=== PATIENT | male | born 1965 | race Caucasian/White ===

== ENCOUNTER 2017-04-22 10:14 | Emergency (ER) | payer MEDICAID ==
--- NOTE | 2017-04-22 10:54 | ED Physician Chart ---
ED Chief Complaint/HPI - Patient Information Date Seen:: 04/22/17 Time Seen:: 10:49 Chief Complaint:: BLE weakness History of Present Illness:: 51 yo male had weakness of BLE and difficulty walking for 1 year progressively worsened with tremor during past months. The legs had difficulty bearing weight. He denied numbness or tingling of BLE. Allergies:: Allergies Allergy/AdvReac Type Severity Reaction Status Date / Time No Known Allergies Allergy Verified 04/22/17 10:42 Vitals:: Vital Signs - 8 hr 04/22/17 10:43 Temp 99.9 F HR 95 RR 21 BP 146/77 O2 Sat % 99 ED Review of Systems - Review of Systems General/Constitutional: No fever, Weakness Skin: No bruising Head: No headache Eyes: No pain ENT: No nasal drainage Neck: No neck pain Cardio Vascular: No chest pain Pulmonary: No SOB GI: No vomiting Musculoskeletal: Back pain Neurological: Weakness ED Past Medical History - Past Medical History Past Medical History: HTN Social History: Non Smoker, Alcohol, Illicit Drug Use (marijuana) Surgical History: other (left shoulder, and bilateral ankle surgeries) Family Medical History - Family Member Mother History Unknown: Yes Ethnicity: Non- Living Status: Hx Family Cancer: No Hx Family Coronary Artery Disease: No Hx Family Congestive Heart Failure: No Hx Family Hypertension: No Hx Family Stroke: No Hx Family Diabetes: No Hx Family Seizures: No Hx Family Dementia: No Hx Family AIDS: No Hx Family HIV: No Hx Family COPD: No Hx Family Hepatitis: No Hx Family Psychiatric Problems: No Hx Family Tuberculosis: No Father History Unknown: Yes Ethnicity: Non- Living Status: Hx Family Cancer: No Hx Family Coronary Artery Disease: No Hx Family Congestive Heart Failure: No Hx Family Hypertension: No Hx Family Stroke: No Hx Family Diabetes: No Hx Family Seizures: No Hx Family Dementia: No Hx Family AIDS: No Hx Family HIV: No Hx Family COPD: No Hx Family Hepatitis: No Hx Family Psychiatric Problems: No Hx Family Tuberculosis: No ED Physical Exam - Physical Examination General/Constitutional: Awake Head: Atraumatic Eyes: PERRL Skin: No ecchymosis ENMT: Nasal exam nl Neck: No nuchal rigidity Respiratory: Clear to Auscultation Cardio Vascular: RRR, No murmur, gallop, rubs, NL S1 S2 GI: No tenderness/rebounding/guarding Other Extremities comments:: Weakness of BLE Neuro/Psych: Normal sensory exam ED Labs/Radiology/EKG Results - Lab Results Results: Laboratory Last Values WBC 3.0 Th/cmm (4.8-10.8) L D 04/22/17 11:24 RBC 3.12 Mil/cmm (4.30-5.70) L 04/22/17 11:24 Hgb 10.8 gm/dL (12-16) L 04/22/17 11:24 Hct 31.7 % (41.0-60) L D 04/22/17 11:24 MCV 101.5 fl (80-99) H 04/22/17 11:24 MCH 34.5 pg (26.0-30.0) H 04/22/17 11:24 MCHC Differential 34.0 pg (28.0-36.0) 04/22/17 11:24 RDW 13.1 % (11.5-20.0) 04/22/17 11:24 Plt Count 78 Th/cmm (150-400) L D 04/22/17 11:24 MPV 6.2 fl 04/22/17 11:24 Neutrophils % 68.2 % (40.0-80.0) 04/22/17 11:24 Lymphocytes % 16.5 % (20.0-50.0) L 04/22/17 11:24 Monocytes % 14.7 % (2.0-10.0) H 04/22/17 11:24 Eosinophils % 0.4 % (0.0-5.0) 04/22/17 11:24 Basophils % 0.2 % (0.0-2.0) 04/22/17 11:24 Sodium 136 mEq/L (136-145) 04/22/17 11:24 Potassium 3.9 mEq/L (3.5-5.1) 04/22/17 11:24 Chloride 102 mEq/L (98-107) 04/22/17 11:24 Carbon Dioxide 27.2 mEq/L (21.0-31.0) 04/22/17 11:24 Anion Gap 10.7 (7.0-16.0) 04/22/17 11:24 BUN 13 mg/dL (7-25) 04/22/17 11:24 Creatinine 0.9 mg/dL (0.7-1.3) 04/22/17 11:24 Est GFR ( Amer) > 60.0 ml/min (>90) 04/22/17 11:24 Est GFR (Non-Af Amer) > 60.0 ml/min 04/22/17 11:24 BUN/Creatinine Ratio 14.4 04/22/17 11:24 Glucose 99 mg/dL (70-105) 04/22/17 11:24 Calcium 9.0 mg/dL (8.6-10.3) 04/22/17 11:24 Total Bilirubin 0.9 mg/dL (0.3-1.0) 04/22/17 11:24 AST 50 U/L (13-39) H 04/22/17 11:24 ALT 20 U/L (7-52) 04/22/17 11:24 Alkaline Phosphatase 102 U/L (34-104) 04/22/17 11:24 Total Protein 7.1 gm/dL (6.0-8.3) 04/22/17 11:24 Albumin 3.8 gm/dL (4.2-5.5) L 04/22/17 11:24 Globulin 3.3 gm/dL 04/22/17 11:24 Albumin/Globulin Ratio 1.2 (1.0-1.8) 04/22/17 11:24 Urine Source RANDOM 04/22/17 12:10 Urine Color YELLOW 04/22/17 12:10 Urine Clarity HAZY (CLEAR) 04/22/17 12:10 Urine pH 7.0 (4.6 - 8.0) 04/22/17 12:10 Ur Specific [place] 1.010 (1.005-1.030) 04/22/17 12:10 Urine Protein 30 mg/dL (NEGATIVE) H 04/22/17 12:10 Urine Glucose (UA) NEGATIVE mg/dL (NEGATIVE) 04/22/17 12:10 Urine Ketones NEGATIVE mg/dL (NEGATIVE) 04/22/17 12:10 Urine Blood NEGATIVE (NEGATIVE) 04/22/17 12:10 Urine Nitrate NEGATIVE (NEGATIVE) 04/22/17 12:10 Urine Bilirubin NEGATIVE (NEGATIVE) 04/22/17 12:10 Urine Urobilinogen 0.2 E.U./dL (0.2 - 1.0) 04/22/17 12:10 Ur Leukocyte Esterase NEGATIVE (NEGATIVE) 04/22/17 12:10 Urine RBC NONE SEEN /hpf (0-5) 04/22/17 12:10 Urine WBC 0-2 /hpf (0-5) 04/22/17 12:10 Ur Epithelial Cells RARE /lpf (FEW) 04/22/17 12:10 Urine Bacteria NONE SEEN /hpf (NONE SEEN) 04/22/17 12:10 Urine Opiates Screen NEGATIVE (NEGATIVE) 04/22/17 12:10 Urine Methadone Screen NEGATIVE (NEGATIVE) 04/22/17 12:10 Ur Barbiturates Screen NEGATIVE (NEGATIVE) 04/22/17 12:10 Ur Tricyclics Screen NEGATIVE (NEGATIVE) 04/22/17 12:10 Ur Phencyclidine Scrn NEGATIVE (NEGATIVE) 04/22/17 12:10 Amphetamines Screen NEGATIVE (NEGATIVE) 04/22/17 12:10 U Methamphetamines Scrn NEGATIVE (NEGATIVE) 04/22/17 12:10 U Benzodiazepines Scrn POSITIVE (NEGATIVE) H 04/22/17 12:10 U Cocaine Metab Screen NEGATIVE (NEGATIVE) 04/22/17 12:10 U Cannabinoids Screen POSITIVE (NEGATIVE) H 04/22/17 12:10 Ethyl Alcohol < 10 mg/dL (0-10) 04/22/17 11:24 - Radiology Results Results: CXR: no focal consolidation L-spine X ray: Compression fracture T12, L2, L4, spondylolisthesis L5 on S1 ED Assessment - Assessment General Assessment: Lumbago Lumbar radiculopathy Compression fracture T12, L2, L4 Leukopenia Macrocytic anemia Thrombocytopenia Substance abuse Assessment/Comments:: CBC, CMP, UA, urine drug screen Rocephin NS 1L IV bolus Vitamin B12 1000mcg PO x 1 D/c home F/u PCP for L-spine MRI and outpatient work up for pancytopenia ED Septic Shock - . Is Septic Shock (SBP<90, OR Lactate>4 mmol\L) present?: No - <6hrs of presentation: Vital Signs: Vital Signs - 8 hr 04/22/17 10:43 Temp 99.9 F HR 95 RR 21 BP 146/77 O2 Sat % 99 ED Reassessment (Disposition) - Reassessment Reassessment Condition:: Improved - Patient Disposition Discharge/Transfer:: Home ED Discharge Plan - Patient Disposition Admit/Discharge/Transfer: PT DISCHARGED HOME Condition at Disposition: Improved Instructions: Radicular Pain, Tremor, Vertebral Fracture, [id number], Lumbosacral Radiculopathy
[2017-04-22 11:32] LABS: % BASOPHILS 0.2 % (0.0-2.0); % EOSINOPHILS 0.4 % (0.0-5.0); % LYMPHOCYTES 16.5 % (20.0-50.0); % MONOCYTES 14.7 % (2.0-10.0); % NEUTROPHILS 68.2 % (40.0-80.0); HEMOGLOBIN 10.8 gm/dL (12-16); LYMPHOCYTE ABSOLUTE 0.5 Th/cmm (1.5-3.0); MEAN CELL VOLUME 101.5 fl (80-99); MEAN CORPUSCULAR HEMOGLOBIN 34.5 pg (26.0-30.0); MEAN PLATELET VOLUME 6.2 fl; MONOCYTE ABSOLUTE 0.4 Th/cmm (0.3-1.0); NEUTROPHILE ABSOLUTE 2.1 Th/cmm (1.8-8.0); RED BLOOD COUNT 3.12 Mil/cmm (4.30-5.70); RED CELL DISTRIBUTION WIDTH 13.1 % (11.5-20.0)
--- NOTE | 2017-04-22 11:38 | Diagnostic Imaging Report ---
Portable chest x-ray Time: 1113 History: Shortness of breath Allowing for portable technique the heart size is normal. No focal pulmonary parenchymal processes. No hilar or mediastinal abnormalities. Impression: No acute abnormalities.
[2017-04-22 11:39] LABS: HEMATOCRIT 31.7 % (41.0-60); PLATELET COUNT 78 Th/cmm (150-400)
[2017-04-22 11:52] LABS: ALB/GLOB RATIO 1.2 (1.0-1.8); ALBUMIN 3.8 gm/dL (4.2-5.5); ALKALINE PHOSPHATASE 102 U/L (34-104); ANION GAP 10.7 (7.0-16.0); BILIRUBIN,TOTAL 0.9 mg/dL (0.3-1.0); BUN - UREA NITROGEN 13 mg/dL (7-25); CARBON DIOXIDE 27.2 mEq/L (21.0-31.0); CHLORIDE 102 mEq/L (98-107); CREATININE - SERUM 0.9 mg/dL (0.7-1.3); GFR AFRICAN-AMERICAN > 60.0 ml/min (>90); GFR NON AFRICAN-AMERICAN > 60.0 ml/min; GLUCOSE 99 mg/dL (70-105); POTASSIUM SERUM 3.9 mEq/L (3.5-5.1); SGOT 50 U/L (13-39); SGPT/ALT 20 U/L (7-52); SODIUM SERUM 136 mEq/L (136-145); TOTAL PROTEIN,SERUM 7.1 gm/dL (6.0-8.3)
[2017-04-22 12:24] LABS: URINE MICROSCOPIC INDICATED? YES; URINE SOURCE RANDOM
[2017-04-22 12:42] LABS: URINE BILIRUBIN NEGATIVE (NEGATIVE); URINE BLOOD NEGATIVE (NEGATIVE); URINE GLUCOSE (UA) NEGATIVE (NEGATIVE); URINE KETONE NEGATIVE (NEGATIVE); URINE LEUKOCYTE ESTERASE NEGATIVE (NEGATIVE); URINE NITRATE NEGATIVE (NEGATIVE); URINE PROTEIN 30 mg/dL (NEGATIVE); URINE UROBILINOGEN 0.2 E.U./dL (0.2 - 1.0)
[2017-04-22] MEDS ORDERED: Sodium Chloride 0.9% 1,000 ML IV ONE (12:46)
[2017-04-22 12:50] LABS: AMPHETAMINE URINE NEGATIVE (NEGATIVE); BARBITURATES URINE NEGATIVE (NEGATIVE); COCAINE METABOLITE QUAL URINE NEGATIVE (NEGATIVE); PHENCYCLIDINE (PCP) URINE NEGATIVE (NEGATIVE); URINE CLARITY HAZY (CLEAR); URINE COLOR YELLOW
[2017-04-22 12:51] LABS: BENZODIAZEPINES QUAL URINE POSITIVE (NEGATIVE); CANNABINOID THC POSITIVE (NEGATIVE); METHADONE URINE NEGATIVE (NEGATIVE); METHAMPHETAMINES QUAL URINE NEGATIVE (NEGATIVE); OPIATES (MORPHINE) QUAL. URINE NEGATIVE (NEGATIVE); TRICYCLICS (TCA) QUAL. URINE NEGATIVE (NEGATIVE)
[2017-04-22 13:01] LABS: URINE BACTERIA NONE SEEN /hpf (NONE SEEN); URINE EPITHELIAL CELLS RARE /lpf (FEW); URINE RBC NONE SEEN /hpf (0-5); URINE WBC 0-2 /hpf (0-5)
[2017-04-22] MEDS ORDERED: cefTRIAXone 1 GM in Sodium Chloride 0.9% 50 ML IV ONE (14:15)
--- NOTE | 2017-04-23 08:04 | Diagnostic Imaging Report ---
Lumbar spine HISTORY: Pain, weakness There is mild spondylolisthesis of L5 on S1 (approximate 10% displacement). Air is seen within the interspace at L5-S1 reflecting degenerative disc disease. Suggestion of spondylolysis at this level. Oblique views would provide additional assessment. Spina bifida occulta noted at L5. Degenerative spur formation noted about appear endplate of L4 with slight compression. Slight compression involving the superior endplate of L2. Complete compression involving the body of T12. IMPRESSION: 1. Complete compression involving the body of T12. There appears to be mild extradural encroachment on the anterior spinal canal at this level. An MRI exam would provide additional assessment and evaluation. 2. Spondylolisthesis L5 on S1 with suggestion of spondylolysis. Associated evidence of degenerative disc disease at the L5-S1 level. 3. Partial compression involving the superior endplates of L2 and L4. 4. Spina bifida occulta L5
== END 2017-04-22 18:10 | disposition home or self-care (01) ==
LOC: ER 10:14
DX: R53.1 Weakness (principal); F17.200 Nicotine dependence, unspecified, uncomplicated
CPT/HCPCS: 99285; 96365; 93005; 71045; 72110; 36415; 80307; 85025; 81001; 80320; 80053; 87040; J0696; J7040; 83605; J7030

== ENCOUNTER 2017-06-01 13:05 | Emergency (ER) | payer MEDICAID ==
--- NOTE | 2017-06-01 13:28 | ED Physician Chart ---
ED Chief Complaint/HPI - Patient Information Date Seen:: 06/01/17 Time Seen:: 13:22 Chief Complaint:: Cough History of Present Illness:: 51 yo male had cough, fever and body ache for 4 days. He was tested positive for Influenza B and was given Tamiflu 75 mg. The treatment will last until . The patient requested an extended treatment for another 5 days. Allergies:: Allergies Allergy/AdvReac Type Severity Reaction Status Date / Time No Known Allergies Allergy Verified 04/22/17 10:42 ED Past Medical History - Past Medical History Past Medical History: Arthritis (right knee) Social History: Smoker, No Alcohol, Illicit Drug Use (marijuana) Surgical History: other (bilateral ankle surgeries, shoulder surgery) Family Medical History - Family Member Mother History Unknown: Yes Ethnicity: Non- Living Status: Hx Family Cancer: No Hx Family Coronary Artery Disease: No Hx Family Congestive Heart Failure: No Hx Family Hypertension: No Hx Family Stroke: No Hx Family Diabetes: No Hx Family Seizures: No Hx Family Dementia: No Hx Family AIDS: No Hx Family HIV: No Hx Family COPD: No Hx Family Hepatitis: No Hx Family Psychiatric Problems: No Hx Family Tuberculosis: No Father History Unknown: Yes Ethnicity: Non- Living Status: Hx Family Cancer: No Hx Family Coronary Artery Disease: No Hx Family Congestive Heart Failure: No Hx Family Hypertension: No Hx Family Stroke: No Hx Family Diabetes: No Hx Family Seizures: No Hx Family Dementia: No Hx Family AIDS: No Hx Family HIV: No Hx Family COPD: No Hx Family Hepatitis: No Hx Family Psychiatric Problems: No Hx Family Tuberculosis: No ED Assessment - Assessment General Assessment: Influenza B infection Assessment/Comments:: Oseltamivir 75 mg bid #10 ED Septic Shock - . Is Septic Shock (SBP<90, OR Lactate>4 mmol\L) present?: No ED Reassessment (Disposition) - Reassessment Reassessment Condition:: Unchanged - Patient Disposition Discharge/Transfer:: Home ED Discharge Plan - Patient Disposition Prescriptions: Oseltamivir Phosphate [Tamiflu] 75 mg PO BID #10 cap Instructions: Influenza, Adult, [id number]
== END 2017-06-01 13:47 | disposition home or self-care (01) ==
LOC: ER 13:05
DX: J10.1 Influenza due to other identified influenza virus with other respiratory manifestations (principal); F17.200 Nicotine dependence, unspecified, uncomplicated
CPT/HCPCS: Z7502